=== PATIENT | female | born 1995 | race Caucasian/White ===

== ENCOUNTER → 2024-05-30 | Outpatient (CLI) | payer MEDICAID, SELFPAY ==
--- NOTE | 2024-05-30 16:30 | XR_ITS ---
Examination: MRI thoracic spine without contrast. Date and time of exam: May 30, 2024 1547 hrs. Indications: Mid back pain radiating to the left scapula and left-sided chest several years worse over the last 2 years Technique: Multiple sagittal and axial images of the thoracic spine have been obtained. T1 weighted localizer, sagittal T2 weighted images, TR 30-50, TE 148, T1 weighted sagittal images, TR 650, TE 14, T2-weighted transverse images, TR 6770, TE 142 Findings: Adequate alignment thoracic vertebral bodies No thoracic fracture Minimal disc desiccation T6-T7 T6-T7 2 mm disc protrusion No localized enlargement thoracic cord No syrinx cavity Impression: 2 mm thoracic disc protrusion T6-T7
== END | disposition home or self-care (01) ==
LOC: SMRI 16:12
PROVIDERS: PCP Registered Nurse Pediatrics; Referring Provider Registered Nurse Pediatrics; Visit Provider Registered Nurse Pediatrics
DX: M51.24 Other intervertebral disc displacement, thoracic region (principal)
CPT/HCPCS: 72146